=== PATIENT | female | born 1975 | race Caucasian/White ===

== ENCOUNTER 2017-07-18 17:02 | Emergency (ER) | payer OTHER ==
[~2017-07-18] VITALS: Ht 160 cm; Wt 95.6 kg
[2017-07-18 17:54] VITALS: BP 149/69; PULSE 75; RESP 16; TEMP 99; O2SAT 97
--- NOTE | 2017-07-18 18:27 | RADRPT ---
EXAM DATE/TIME: 07/18/2017 18:11 [place] COMPARISON: No previous studies available for comparison. INDICATIONS : Left hand, 5th digit pain. MEDICAL HISTORY : None. SURGICAL HISTORY : None. ENCOUNTER: Initial ACUITY: 1 day PAIN SCORE: 8/10 LOCATION: Left hand, 5th digit. FINDINGS: There is an oblique fracture through the proximal fifth phalanx. There is mild medial and proximal di splacement. The fracture does not clearly extend into a joint space. CONCLUSION: Acute proximal fifth phalanx fracture. Brennen Umana MD on July 18, 2017 at 18:23 Board Certified Radiologist. This report was verified electronically.
--- NOTE | 2017-07-18 19:15 | PD ---
HPI Chief Complaint: Injury Time Seen by Provider: 19:10 Travel History International Travel<30 days: No Contact w/Intl Traveler<30days: No Traveled to known affect area: No History of Present Illness HPI Patient comes in complaining of left upper extremity pinky finger pain that began shortly prior to arrival. Patient states she was wrestling around when her finger got caught the others person's finger feeling a popping sensation in her finger. Patient throbbing sensation proximal phalanx since. Denies any radiation of pain. Pain is worse with palpation and movement. Patient applied ice prior to coming to the emergency department symptoms. Denies any numbness or tingling. PFSH Past Medical History Thyroid Disease: Yes ?: Not LMP: NOW Social History Alcohol Use: No Tobacco Use: No Substance Use: No Allergies-Medications (Allergen,Severity, Reaction): Coded Allergies: No Known Allergies (Verified Allergy, Unknown, 07/18/17) Review of Systems Except as stated in HPI: all other systems reviewed are Neg Physical Exam Narrative GENERAL: Well-developed, overly nourished, in no acute distress, and non-ill appearing. SKIN: Focused skin assessment warm and dry. HEAD: Atraumatic. Normocephalic. EYES: Pupils equal and round. EOMI. No scleral icterus. No injection or drainage. ENT: No nasal bleeding or discharge. Mucous membranes pink and moist. NECK: Trachea midline. Supple. No nuclear rigidity. CARDIOVASCULAR: Capillary refill less than 2 seconds. RESPIRATORY: No accessory muscle use. No respiratory distress. MUSCULOSKELETAL: No obvious deformities. No clubbing. No cyanosis. No edema. Decreased range of motion left pinky finger secondary to pain. Soft tissue swelling noted proximal phalanx. Patient persist palpation proximal phalanx. Neurovascularly intact distally. NEUROLOGICAL: Awake and alert. No obvious cranial nerve deficits. Motor grossly within normal limits. Normal speech. PSYCHIATRIC: Appropriate mood and affect; insight and judgment normal. Data Data Last Documented VS Vital Signs Date Time Temp Pulse Resp B/P (MAP) Pulse Ox O2 Delivery O2 Flow Rate FiO2 07/18/17 17:54 99.0 75 16 149/69 (95) 97 Orders Orders Finger ([id number]) (07/18/17 ) Splint Or Brace Apply/Monitor (07/18/17 19:10) Finger Splint (07/18/17 ) [facility] Medical Decision Making Medical Screen Exam Complete: Yes Emergency Medical Condition: Yes Interpretation(s) Finger x-ray read by the radiologist shows: Acute proximal fifth phalanx fracture. Differential Diagnosis Fracture, sprain, dislocation, contusion, other Narrative Course The patient sustained a fracture. The distal extremity appears neurovascularly intact, without evidence of neurovascular injury nor compartment syndrome. Tendon exam also was intact. The effected finger was splinted. The patient was discharged with fracture and splint care instructions and given warnings for vascular compromise. The patient is to follow up with hand surgeon. The patient agrees with plan. Patient in no obvious distress upon re-evaluation. All pertinent Radiology result(s) discussed with patient. Any questions/concerns in reference to patient diagnosis/condition discussed and clarified prior to patient's discharge. Reinforced sheer importance of close follow up with hand surgeon. Instructed patient to return to ED immediately, if symptoms return/worsen. Pt showed understanding of above instructions. Further instructions and recommendations were detailed in discharge paperwork. Pt ambulated without difficulty out of ED at discharge. Diagnosis Primary Impression: Finger fracture, left Qualified Codes: S62.617A - Displaced fracture of proximal phalanx of left little finger, initial encounter for closed fracture Referrals: Belkys Mir MD Patient Instructions: Finger Fracture (DC), General Instructions, Splint Care ( GEN) Additional Instructions: Follow-up with hand surgeon this week for reevaluation. Use [id number] Tylenol and/or ibuprofen as needed for pain. Follow instructions on the packaging. Apply ice to affected finger 20 minutes per hour as needed for pain. Wear finger splint and jagjit taped to the ring finger to promote proper healing. Return to the emergency department if symptoms get worse. Disposition: 01 DISCHARGE HOME Condition: Stable Sandip Roland Jul 18, 2017 19:15
== END 2017-07-18 19:40 | disposition home or self-care (01) ==
LOC: PHED 17:02
DX: S62.617A Displaced fracture of proximal phalanx of left little finger, initial encounter for closed fracture (principal); X58.XXXA Exposure to other specified factors, initial encounter; Y93.83 Activity, rough housing and horseplay
CPT/HCPCS: 73140; 99283